=== PATIENT | female | born 1945 | race Caucasian/White ===

== ENCOUNTER 2022-09-19 16:10 | Emergency (ER) | payer MEDICARE, SELFPAY ==
--- NOTE | 2022-09-19 16:22 | ED.SKABFB ---
HPI - Skin/Abscess/Foreign Bdy General Chief complaint: Skin/Abscess/Foreign Body Stated complaint: Insect Bite Time Seen by Provider: 09/19/22 16:22 Source: patient Mode of arrival: ambulatory Limitations: no limitations History of Present Illness HPI narrative: Patient is a 77-year-old female who presents with tick attached to her right neck. Patient states she thought it was a skin tag that it has been itchy. States she thinks it has been there for 3 days. Also having high blood pressure but states it was 200 over 115 at her chiropractor prior to arrival. States it has been increasingly elevated the last 3 months. Denies any headache, vision changes, dizziness, numbness or tingling or weakness to any extremities. Related Data Home Medications Medication Instructions Recorded Confirmed atorvastatin 40 mg tablet mg 09/19/22 carvedilol 25 mg tablet mg 09/19/22 carvedilol 25 mg tablet mg 09/19/22 empagliflozin 25 mg tablet mg 09/19/22 (Jardiance) glipizide 5 mg tablet, extended mg PO 09/19/22 release 24 hr lisinopril 20 mg tablet mg 09/19/22 prednisone 5 mg tablet mg 09/19/22 09/19/22 tramadol 50 mg tablet mg 09/19/22 warfarin 3 mg tablet mg 09/19/22 Allergies Allergy/AdvReac Type Severity Reaction Status Date / Time No Known Allergies Allergy Verified 09/19/22 17:04 Review of Systems Review of Systems: All systems reviewed & are unremarkable except as noted in HPI and below Constitutional: Constitutional: Denies body ache(s), Denies chills, Denies fatigue, Denies fever(s), Denies headache(s), Denies malaise and Denies weakness Eyes: Eyes: Denies blurry vision, Denies irritation and Denies loss of vision ENT: Denies otalgia, Denies headache(s), Denies nasal discharge, Denies sinus pain and Denies sore throat Cardiovascular: Cardiovascular: Denies chest pain, Denies irregular heart rhythm and Denies dyspnea Respiratory: Respiratory: Denies dyspnea Gastrointestinal: Gastrointestinal: Denies abdominal pain, Denies melena, Denies hematochezia, Denies diarrhea, Denies nausea and Denies vomiting Musculoskeletal: Musculoskeletal: Denies back pain, Denies myalgias and Denies arthralgias Integumentary/Breasts: Skin/Breast: Denies pruritus, Denies rash and Reports other (Tick attached to neck) Neurologic: Denies headache(s), Denies loss of vision and Denies weakness Psychiatric: Psychiatric: Reports no additional psychiatric complaints Endocrine: Endocrine: Denies fatigue PMFSH Comments At time of signature, agree with nursing past medical, surgical, social and family history. There is no relevant family history pertinent to the presenting complaint. Exam Const: General: cooperative, healthy appearing, comfortable, no acute distress and well nourished Nutritional Appearance: well nourished Orientation/consciousness: patient oriented x3 Limitations: no limitations HENMT: Head: normal to inspection, normocephalic and atraumatic Ears: hearing grossly normal bilaterally and external ears normal Face/Nose/Sinus: Normal external nose present, normal facial exam and face symmetric Face and sinus: normal facial exam and face symmetric Mouth: Yes lip normal Eyes: General: appearance normal, both eyes and all related structures Alignment and Position: alignment normal and position normal Periorbital: periorbital findings normal Eyelids: eyelids normal Pupils: Equal, round and reactive pupils present EOM: EOMs intact bilaterally Neck: Neck: normal visual inspection, full ROM and supple Neck images: 1. Tick removed completely with head attached. Tics size 1 cm. No erythema or drainage from skin after tick removal Chest: Chest palpation & inspection: normal inspection of the chest Resp: Effort & Inspection: normal respiratory effort and able to speak in complete sentences Auscultation: clear to auscultation bilaterally Cardio: Rate: regular rate Rhythm: regular rhythm Heart sounds: S1 n
[2022-09-19 16:31] VITALS: BP 169/121; PULSE 78; RESP 12; TEMP 36.6; O2SAT 100
== END 2022-09-19 17:16 | disposition home or self-care (01) ==
PROVIDERS: Emergency Provider Nurse Practitioner Family
DX: S10.96XA Insect bite of unspecified part of neck, initial encounter (principal); W57.XXXA Bitten or stung by nonvenomous insect and other nonvenomous arthropods, initial encounter
CPT/HCPCS: 99213; G0463